=== PATIENT | male | born 1965 ===

== ENCOUNTER 2021-05-29 11:26 | Observation (INO) ==
[2021-05-29] MEDS ORDERED: Lactated Ringers 1000 ml BAG 1,000 ML IV ONE (12:09)
[2021-05-29 12:21] LABS: ABS Eosinophils 0.1 10^3/ul (0-0.6); ABS Lymphocytes 1.8 10^3/ul (1.0-4.8); ABS Monocytes 0.6 10^3/ul (0-0.8); ABS Neutrophils 8.5 10^3/ul (1.5-7.7); Eosinophil % 0.5 %; Hematocrit 38 % (42-52); Hemoglobin 12.9 g/dL (14.0-18.0); Lymphocyte % 16.6 %; Mean Corpuscular HGB Conc 34 g/dL (31-36); Mean Corpuscular Hemoglobin 30 pg (27-31); Mean Corpuscular Volume 89 fL (80-94); Mean Platelet Volume 7.2 fL (7.4-10.4); Platelet Count 260 10^3/uL (150-450); Red Cell Distribution Width 13 % (10-15); White Blood Count 11.1 10^3/uL (3.5-10.8)
[2021-05-29 12:27] LABS: INR 1.14 (0.86-1.15)
[2021-05-29 12:45] LABS: High Sens Troponin Baseline < 3 pg/mL (<20)
[2021-05-29 12:59] LABS: ALT 9 U/L (7-52); AST 13 U/L (13-39); Albumin 4.9 g/dL (3.2-5.2); Albumin/Globulin Ratio 1.6 (1-3); Alkaline Phosphatase 65 U/L (35-149); Anion Gap 5 mmol/L (2-11); Blood Urea Nitrogen 14 mg/dL (6-24); CO2 Carbon Dioxide 30 mmol/L (22-32); Calcium 10.1 mg/dL (8.6-10.3); Chloride 104 mmol/L (101-111); Glucose 101 mg/dL (70-100); Potassium 4.3 mmol/L (3.5-5.0); Sodium 139 mmol/L (135-145); Total Protein 7.9 g/dL (6.4-8.9); eGFR CKD-EPI 85.7 (>60)
[2021-05-29 13:57] LABS: High Sensitivity Troponin 1 Hr 3 pg/mL (<20)
[2021-05-29] MEDS ORDERED: Enoxaparin 40 MG/0.4 ML SYR SUBCUT SCH ×2 (16:00→21:00)
[2021-05-29 16:48] LABS: C Reactive Protein < 1.00 mg/L (<8.01); Creatine Kinase 177 U/L (10-223)
[2021-05-29] MEDS ORDERED: Iohexol 350 (CONTRAST) 500 ML MDV IV ONE (16:59)
[2021-05-29 17:16] LABS: Urine Appearance Clear; Urine Bacteria Absent (Absent); Urine Bilirubin Negative (Negative); Urine Blood 1+ (Negative); Urine Color Straw; Urine Glucose Negative (Negative); Urine Ketones Trace (Negative); Urine Nitrite Negative (Negative); Urine Protein Negative (Negative); Urine Red Blood Cell Trace(0-2/hpf) (Absent); Urine Specific Gravity 1.005 (1.002-1.030); Urine Urobilinogen Negative (Negative); Urine White Blood Cell Absent (Absent)
[2021-05-29] MEDS ORDERED: Senna TAB 8.6 mg TAB PO PRN (17:25)
[2021-05-29 19:07] LABS: TSH Ultra Thyroid Stim Horm 0.83 mcIU/mL (0.34-5.60)
[2021-05-29] MEDS: Polyethylene Glycol 3350 17 GM PACKET PO SCH (20:20)
[2021-05-30 05:51] LABS: ABS Eosinophils 0.2 10^3/ul (0-0.6); ABS Lymphocytes 3.1 10^3/ul (1.0-4.8); ABS Monocytes 0.6 10^3/ul (0-0.8); ABS Neutrophils 3.5 10^3/ul (1.5-7.7); Eosinophil % 2.6 %; Hematocrit 36 % (42-52); Lymphocyte % 41.8 %; Mean Corpuscular HGB Conc 34 g/dL (31-36); Mean Corpuscular Hemoglobin 31 pg (27-31); Mean Corpuscular Volume 91 fL (80-94); Mean Platelet Volume 7.4 fL (7.4-10.4); Platelet Count 232 10^3/uL (150-450); Red Blood Count 3.92 10^6 /uL (4.18-5.48); Red Cell Distribution Width 13 % (10-15); White Blood Count 7.4 10^3/uL (3.5-10.8)
[2021-05-30 06:22] LABS: Calcium 9.2 mg/dL (8.6-10.3); HDL Cholesterol 50.1 mg/dL; Potassium 4.6 mmol/L (3.5-5.0); eGFR CKD-EPI 66.5 (>60)
[2021-05-30] MEDS ORDERED: Magnesium CITRATE LIQ 300 ML BTL PO ONE (08:07)
[2021-05-30] MEDS ORDERED: Senna TAB 8.6 mg TAB PO ONE (08:07)
[2021-05-30] MEDS: Polyethylene Glycol 3350 17 GM PACKET PO SCH (08:14)
[2021-05-30 09:27] LABS: Urine Creatinine Concentration 44.56 mg/dL
[2021-05-30] MEDS ORDERED: Lactated Ringers 1000 ml BAG 1,000 ML IV ONE (09:31)
[2021-05-30 12:24] LABS: Calcium 9.8 mg/dL (8.6-10.3); Potassium 4.8 mmol/L (3.5-5.0); eGFR CKD-EPI 77.5 (>60)
[2021-05-30 12:30] VITALS: BP 126/82
== END 2021-05-30 18:32 ==
LOC: ED 11:26 → EDHOLD 11:26 → MEDTELE 18:32
PROVIDERS: ADMIT Internal Medicine; ATTEND Internal Medicine